=== PATIENT | female | born 1955 | race Caucasian/White ===

== ENCOUNTER 2022-09-05 14:15 | Outpatient (RCR) | payer BC, SELFPAY | END 2023-01-13 14:42 | disposition home or self-care (01) | PROVIDERS: PCP Family Medicine; Visit Provider Family Medicine | DX: M54.16 Radiculopathy, lumbar region (principal); M25.551 Pain in right hip; R25.2 Cramp and spasm; M25.60 Stiffness of unspecified joint, not elsewhere classified; Z51.89 Encounter for other specified aftercare | CPT/HCPCS: 97110; 97140; 97162 ==

== ENCOUNTER 2023-08-10 09:46 | Outpatient (CLI) | payer BC, SELFPAY ==
--- NOTE | 2023-08-10 11:01 | W.ANESCHARGE ---
Anesthesia Charges Start Date/Time Anesthesia Start Date: 08/10/23 Anesthesia Start Time: 10:55 Stop Date/Time Anesthesia Stop Date: 08/10/23 Anesthesia Stop Time: 11:25
--- NOTE | 2023-08-10 11:27 | W.ANESCHARGE ---
Anesthesia Charges Start Date/Time Anesthesia Start Date: 08/10/23 Anesthesia Start Time: 10:55 Stop Date/Time Anesthesia Stop Date: 08/10/23 Anesthesia Stop Time: 11:25
== END 2023-08-10 09:47 | disposition home or self-care (01) ==
LOC: OP CLINIC 09:46
PROVIDERS: PCP Family Medicine; Visit Provider Internal Medicine Gastroenterology
DX: K63.5 Polyp of colon (principal); K63.89 Other specified diseases of intestine; Z86.010 Personal history of colon polyps
CPT/HCPCS: 00811; 45380; 88305; J2704

== ENCOUNTER 2023-12-04 13:00 | Outpatient (RCR) | payer BC, SELFPAY | END 2024-04-02 23:59 | disposition home or self-care (01) | PROVIDERS: PCP Family Medicine; Visit Provider Family Medicine | DX: M72.2 Plantar fascial fibromatosis (principal); M70.61 Trochanteric bursitis, right hip; Z51.89 Encounter for other specified aftercare | CPT/HCPCS: 97110; 97140; 97162; 97535 ==

== ENCOUNTER 2024-08-30 10:48 | Outpatient (CLI) | payer OTHER, BC, SELFPAY | END 2024-08-30 10:49 | disposition home or self-care (01) | LOC: INJ CL 10:49 | PROVIDERS: PCP Family Medicine; Visit Provider Family Medicine | DX: M54.16 Radiculopathy, lumbar region (principal); M51.26 Other intervertebral disc displacement, lumbar region | CPT/HCPCS: 62323; J0702; Q9966 ==

== ENCOUNTER 2024-10-21 14:30 | Outpatient (RCR) | payer OTHER, BC, SELFPAY | END 2025-02-18 23:59 | disposition home or self-care (01) | PROVIDERS: PCP Family Medicine; Visit Provider Family Medicine | DX: S16.1XXD Strain of muscle, fascia and tendon at neck level, subsequent encounter (principal); G44.209 Tension-type headache, unspecified, not intractable; M54.41 Lumbago with sciatica, right side; M54.6 Pain in thoracic spine; G89.29 Other chronic pain; M54.16 Radiculopathy, lumbar region; M50.90 Cervical disc disorder, unspecified, unspecified cervical region; Z51.89 Encounter for other specified aftercare | CPT/HCPCS: 97012; 97110; 97140; 97162; 97530 ==